=== PATIENT | female | born 1955 | race Two or more races ===

== ENCOUNTER 2024-11-09 10:01 | Emergency (ER) | payer OTHER ==
[2024-11-09 10:13] VITALS: BP 162/96; PULSE 80; RESP 20; TEMP 98.3; BMI 25.8
[2024-11-09 10:55] LABS: ABSOLUTE IMMATURE GRANULOCYTES 0.03 x10^3/uL (0.0-0.031); BASOPHILS # 0.02 x10^3/uL (0.01-0.08); EOSINOPHIL % 0.6 % (0.7-5.8); EOSINOPHILS # 0.04 x10^3/uL (0.04-0.36); MCHC 32.2 g/dl (32.2-35.5); MEAN CELL VOLUME 92.1 fl (79.4-94.8); MEAN PLT VOLUME 9.4 fl (9.4-12.3); MONOCYTE # 0.48 x10^3/uL (0.24-0.86); MONOCYTE % 7.2 % (4.7-12.5); RDW 13.1 % (12.4-16.6)
[2024-11-09] MEDS: SODIUM CHLORIDE 1,000 ML IV SCH (10:56)
[2024-11-09 11:03] LABS: INR 0.92 (0.83-1.09); PROTHROMBIN TIME (PATIENT) 10.1 SEC (9.7-13.0)
[2024-11-09 11:06] LABS: ACTIVATED PTT 28.5 SECONDS (25.2-36.5)
[2024-11-09 11:25] LABS: CO2 29.0 mmol/L (21-32)
[2024-11-09 11:27] LABS: GLUCOSE,RANDOM 370.0 mg/dL (74-106)
[2024-11-09 11:29] LABS: CREATININE 0.7 mg/dL (0.55-1.3); SGOT/AST 12.0 U/L (15-37); SGPT/ALT 17.0 U/L (13-61)
[2024-11-09 11:31] LABS: TOT PROT 6.6 g/dl (6.4-8.2)
[2024-11-09 11:32] LABS: ALK PHOS 97.0 U/L (45-117); LDL CHOLESTEROL (ONLY SJRH) 135.0 mg/dL (5-100)
[2024-11-09 19:12] LABS: HCV DIAGNOSTIC IN-HOUSE W/RFLX NON-REACTIVE (NONREACTIVE)
[2024-11-09 19:14] LABS: HIV INTERPRETATION NEGATIVE (NEGATIVE)
== END 2024-11-09 16:22 | disposition home or self-care (01) ==
LOC: JER 10:01
DX: R20.2 Paresthesia of skin (principal); R20.0 Anesthesia of skin; I10 Essential (primary) hypertension
CPT/HCPCS: 36415; 70450-TC; 70496-TC; 70498-TC; 80053; 80061; 82550; 82962; 83036; 83735; 84484; 85025; 85610; 85730; 86803; 86850; 86900; 86901; 87389; 93005; 93010; 99285-25